=== PATIENT | female | born 1995 | race Caucasian/White ===

== ENCOUNTER 2019-08-04 19:27 | Emergency (ER) | payer OTHER ==
[~2019-08-04] VITALS: Ht 149.9 cm; Wt 48.1 kg
[2019-08-04 19:47] VITALS: Ht 149.9 cm; Wt 48.1 kg
[2019-08-04 22:34] VITALS: BP 111/77
== END 2019-08-04 22:34 | disposition home or self-care (01) ==
LOC: ED 19:27
PROC: 0H93XZZ Drainage of Left Ear Skin, External Approach (ICD-10-PCS; principal; 2019-08-04)
DX: T16.2XXA Foreign body in left ear, initial encounter (principal); R03.0 Elevated blood-pressure reading, without diagnosis of hypertension; X58.XXXA Exposure to other specified factors, initial encounter; Y92.9 Unspecified place or not applicable
CPT/HCPCS: J2001